=== PATIENT | male | born 1980 ===

== ENCOUNTER 2022-07-27 01:06 | Emergency (ER) | payer SELFPAY ==
[2022-07-27] MEDS ORDERED: NA CHLORIDE 0.9% 1,000 ML ONE (01:24)
[2022-07-27] MEDS ORDERED: LORazepam 2 MG/ML VIAL ONE (01:24)
[2022-07-27 01:51] LABS: Absolute Lymphocytes (CBC) 2.1 K/uL (0.7-4.9); Hematocrit 45.2 % (39.6-49.0); Lymphocytes % 32.1 % (15.3-44.8); MCV 100.2 fL (80-100); MPV 9.5 fL (7.6-11.3); RBC Red Blood Cell Count 4.51 M/uL (4.33-5.43)
[2022-07-27 01:53] LABS: Protime INR 0.95
[2022-07-27 02:31] LABS: ALT/SGPT 207 U/L (12-78); AST/SGOT 139 U/L (15-37); Albumin 3.3 g/dL (3.4-5.0); Alkaline Phosphatase 104 U/L (45-117); BUN Blood Urea Nitrogen 9 mg/dL (7-18); Bicarbonate 25 mmol/L (21-32); Bilirubin Direct 0.6 mg/dL (0-0.2); Bilirubin Total 1.3 mg/dL (0.2-1.0); Glomerular Filtration Rate 102 ml/min (=/>90); Glucose Level 87 mg/dL (74-106); Potassium 3.3 mmol/L (3.5-5.1); Protein, Total 7.2 g/dL (6.4-8.2); Sodium Level 134 mmol/L (136-145)
[2022-07-27 03:25] LABS: Barbiturates NEGATIVE (NEGATIVE); Benzodiazepines NEGATIVE (NEGATIVE); Cocaine POSITIVE (NEGATIVE); METHAMPHETAM POSITIVE (NEGATIVE); Methadone NEGATIVE (NEGATIVE); Opiates NEGATIVE (NEGATIVE); Phencyclidine NEGATIVE (NEGATIVE); THC Cannibis NEGATIVE (NEGATIVE)
[2022-07-27 03:27] LABS: Urine Blood Trace-intact (Negative); Urine Glucose Negative (Negative); Urine Protein Negative (Negative); Urine Specific Gravity 1.025 (1.005-1.030); Urine pH 5.5 (5.0-7.0)
--- NOTE | 2022-07-27 03:38 | ER ---
Nurse's Notes [facility] Name: Brock Man Age: 41 yrs Sex: Male : 1980 Arrival Date: 07/27/2022 Time: 01:19 Bed 8 Private MD: Diagnosis: Adverse effect of amphetamines;Cocaine abuse;Alcohol abuse;transaminitis Presentation: 07/27 01:20 Chief complaint: Patient states: Patient C/O auditory and visual hallucinations,onset pf1 Wednesday. Patient denies any hallucinations at this time. Patient stated did meth, cocaine and took an unknown type of yellow pill on Wednesday. Patient stated drinks liquor every day. Patient stated fell off his boat and hit his posterior left head on Wednesday. 01:20 Method Of Arrival: EMS: [facility] pf1 01:20 Coronavirus screen: Vaccine status: Patient reports being unvaccinated. Ebola Screen: pf1 Patient negative for fever greater than or equal to 101.5 degrees Fahrenheit, and additional compatible Ebola Virus Disease symptoms. Initial Sepsis Screen: Does the patient meet any 2 criteria? No. Patient's initial sepsis screen is negative. Does the patient have a suspected source of infection? No. Patient's initial sepsis screen is negative. Risk Assessment: Do you want to hurt yourself or someone else? Patient reports no desire to harm self or others. Onset of symptoms was July 24, 2022. 01:20 Acuity: [place] 3 pf1 Triage Assessment: 01:20 General: Appears in no apparent distress. comfortable, well groomed. General: Behavior pf1 is calm, cooperative, appropriate for age. 01:20 Pain: Complains of pain in back of head. EENT: No deficits noted. Neuro: No deficits pf1 noted. Neuro: Reports Patient reports seeing little bugs everywhere and having visual or auditory hallucinations since Wednesday. Patient stated had a 2 hour conversation with his mother tonannamaria. . Cardiovascular: No deficits noted. Respiratory: No deficits noted. GI: No deficits noted. : No deficits noted. Derm: No deficits noted. Musculoskeletal: No deficits noted. Injury Description: Head injury sustained to scalp. Historical: - Allergies: 01:20 No Known Allergies; pf1 - Home Meds: 01:20 None [Active]; pf1 - PMHx: 01:20 None; pf1 - PSHx: 01:20 None; pf1 - Immunization history:: Adult Immunizations not up to date. - Social history:: Smoking status: Patient uses alcohol, on a daily basis. street drugs, cocaine, Methamphetamine (Meth) unknown yellow pill, Smoking status: Patient reports the use of cigarette tobacco products, smokes two packs cigarettes per day. - Family history:: not pertinent. - Code Status:: Full code. Screenin:20 Abuse screen: Denies threats or abuse. pf1 01:20 Nutritional screening: No deficits noted. Tuberculosis screening: No symptoms or risk pf1 factors identified. Fall Risk None identified. Assessment: 01:20 General: Appears in no apparent distress. comfortable, well groomed, Behavior is calm, pf1 cooperative, appropriate for age, quiet. 01:20 Pain: Complains of pain in back of head. pf1 Vital Signs: 01:20 BP 142 / 96; Pulse 88; Resp 18; Temp 98.8; Pulse Ox 100% ; Weight 89.81 kg; Height 6 pf1 ft. 1 in. (185.42 cm); 02:00 BP 137 / 99; Pulse 91; Resp 18; Pulse Ox 99% ; pf1 03:00 BP 132 / 102; Pulse 94; Resp 15; Pulse Ox 100% ; pf1 03:50 BP 137 / 94; Pulse 88; Resp 18; Temp 98.5; Pulse Ox 100% ; pf1 01:20 Body Mass Index 26.12 (89.81 kg, 185.42 cm) pf1 ED Course: 01:19 Patient arrived in ED. ms3 01:19 Jesus Salguero DO is Attending Physician. ms3 01:20 Arm band placed on left wrist. pf1 01:20 Patient has correct armband on for positive identification. pf1 01:30 Warm blanket given. pf1 01:30 Inserted saline lock: 20 gauge in right antecubital area, using aseptic technique. pf1 01:30 No provider procedures requiring assistance completed. pf1 01:44 Ana Cristina kelly, GERARDO is Primary Nurse. pf1 02:06 Triage completed. pf1 02:31 CT Head Brain wo Cont In Process Unspecified. EDMS 03:35 Chris Miller DO is Referral Physician. ms3 03:50 IV discontinued, intact, bleeding controlled, No redness/swelling at site. Pressure pf1 dressing applied. Administered Medications: 01:36 Drug: Ativan (LORazepam) 2 mg Route: IVP; Site: right antecubital; kl 02:20 Follow up: Response: No adverse reaction pf1 01:40 Drug: NS 0.9% 1000 ml Route: IV; Rate: 1 bolus; Site: right antecubital; kl 02:40 Follow up: IV Status: Completed infusion; IV Intake: 1000ml pf1 Medication: 01:20 VIS not applicable for this client. pf1 Intake: 02:40 IV: 1000ml; Total: 1000ml. pf1 Outcome: 03:37 Discharge ordered by MD. ms3 03:50 Discharged to home ambulatory, with family. pf1 03:50 Condition: improved pf1 03:50 Discharge instructions given to patient, Instructed on discharge instructions, benefits of quitting smoking, Demonstrated understanding of instructions, follow-up care. 04:56 Patient left the ED. pf1 Signatures: Dispatcher [employer] EDMS Mary Ellen Win RN RN kl Sims, Marcus, DO DO ms3 Ana Cristina kelly RN RN pf1 Corrections: (The following items were deleted from the chart) 02:15 01:20 Chief complaint: Patient states: Patient C/O auditory and visual pf1 hallucinations,onset Wednesday. Patient denies any hallucinations at this time. Patient stated did meth and took an unknown type of pill on Wednesday. Patient stated drinks liquor every day pf1 04:52 04:20 IV discontinued, intact, bleeding controlled, No redness/swelling at site. pf1 Pressure dressing applied, pf1
--- NOTE | 2022-07-27 03:38 | EDPHYS ---
Physician Documentation [facility] Name: Brock Man Age: 41 yrs Sex: Male : 1980 Arrival Date: 07/27/2022 Time: 01:19 Bed 8 Private MD: ED Physician Jesus Salguero HPI: 07/27 03:39 This 41 yrs old Male presents to ER via EMS with complaints of hallucinations after ms3 taking Meth. 03:39 The patient presents to the emergency department with psychosis, has experienced visual ms3 hallucinations. Onset: The symptoms/episode began/occurred 2 day(s) ago. Associated signs and symptoms: The patient has no apparent associated signs or symptoms. Severity of symptoms: At their worst the symptoms were mild in the emergency department the symptoms are unchanged. Historical: - Allergies: 01:20 No Known Allergies; pf1 - Home Meds: 01:20 None [Active]; pf1 - PMHx: 01:20 None; pf1 - PSHx: 01:20 None; pf1 - Immunization history:: Adult Immunizations not up to date. - Social history:: Smoking status: Patient uses alcohol, on a daily basis. street drugs, cocaine, Methamphetamine (Meth) unknown yellow pill, Smoking status: Patient reports the use of cigarette tobacco products, smokes two packs cigarettes per day. - Family history:: not pertinent. - Code Status:: Full code. ROS: 03:39 Constitutional: Negative for fever, and chills. ENT: Negative for injury, pain, and ms3 discharge, Neck: Negative for injury, pain, and swelling, Cardiovascular: Negative for chest pain, and palpitations. Respiratory: Negative for shortness of breath, cough, wheezing, and pleuritic chest pain, Abdomen/GI: Negative for abdominal pain, nausea, vomiting, diarrhea, and constipation, MS/Extremity: Negative for injury and deformity, Skin: Negative for injury, rash, and discoloration, Neuro: Negative for headache, weakness, numbness, tingling. 03:39 Psych: Positive for visual hallucinations. 03:39 All other systems are negative. Exam: 03:02 ECG was reviewed by the Attending Physician. ms3 03:39 Constitutional: This is a well developed, well nourished patient who is awake, alert, ms3 and in no acute distress. Head/Face: Normocephalic, atraumatic. ENT: Nares patent. No nasal discharge, no septal abnormalities noted. Tympanic membranes are normal and external auditory canals are clear. Oropharynx with no redness, swelling, or masses, exudates, or evidence of obstruction, uvula midline. Mucous membranes moist. Neck: Trachea midline, no cervical lymphadenopathy. Supple, full range of motion without nuchal rigidity, or vertebral point tenderness. No Meningismus. Chest/axilla: Normal chest wall appearance and motion. Nontender with no deformity. Cardiovascular: Regular rate and rhythm with a normal S1 and S2. No gallops, murmurs, or rubs. Normal PMI, no JVD. No pulse deficits. Respiratory: Lungs have equal breath sounds bilaterally, clear to auscultation and percussion. No rales, rhonchi or wheezes noted. No increased work of breathing, no retractions or nasal flaring. Abdomen/GI: Soft, non-tender, with normal bowel sounds. No distension or tympany. No guarding or rebound. No evidence of tenderness throughout. Back: No spinal tenderness. No costovertebral tenderness. Full range of motion. Skin: Warm, dry with normal turgor. Normal color with no rashes, no lesions, and no evidence of cellulitis. MS/ Extremity: Pulses equal, no cyanosis. Neurovascular intact. Full, normal range of motion. Neuro: Awake and alert, GCS 15, oriented to person, place, time, and situation. Cranial nerves II-XII grossly intact. Motor strength 5/5 in all extremities. Sensory grossly intact. Cerebellar exam normal. Normal gait. Psych: Awake, alert, with orientation to person, place and time. Behavior, mood, and affect are within normal limits. Vital Signs: 01:20 BP 142 / 96; Pulse 88; Resp 18; Temp 98.8; Pulse Ox 100% ; Weight 89.81 kg; Height 6 pf1 ft. 1 in. (185.42 cm); 02:00 BP 137 / 99; Pulse 91; Resp 18; Pulse Ox 99% ; pf1 03:00 BP 132 / 102; Pulse 94; Resp 15; Pulse Ox 100% ; pf1 03:50 BP 137 / 94; Pulse 88; Resp 18; Temp 98.5; Pulse Ox 100% ; pf1 01:20 Body Mass Index 26.12 (89.81 kg, 185.42 cm) pf1 MDM: 01:19 Patient medically screened. ms3 03:39 Differential diagnosis: drug withdrawal. acute psychotic break, psychosis secondary to ms3 non-compliance. Data reviewed: vital signs, nurses notes, lab test result(s), and as a result, I will discharge patient. Counseling: I had a detailed discussion with the patient and/or guardian regarding: the historical points, exam findings, and any diagnostic results supporting the discharge/admit diagnosis, lab results, radiology results, the need for outpatient follow up, to return to the emergency department if symptoms worsen or persist or if there are any questions or concerns that arise at home. ED course: Discussed labs and imaging with patient. Patient states he is improved at this time, alert and oriented x4, in no apparent distress, nontoxic-appearing. Patient to follow-up with Dr. Miller in 2 to 3 days. Patient understands and agrees with plan. All questions were answered. Return precautions discussed include worsening symptoms, or any other concerns. 07/27 01:20 Order name: Acetaminophen; Complete Time: 03:13 ms3 07/27 01:20 Order name: BMP; Complete Time: 03:13 ms3 07/27 01:20 Order name: CBC with Diff; Complete Time: 03:13 ms3 07/27 01:20 Order name: Ethanol; Complete Time: 03:13 ms3 07/27 01:20 Order name: Hepatic Function; Complete Time: 03:13 ms07/27 01:20 Order name: Protime (+inr); Complete Time: 03:13 ms07/27 01:20 Order name: Ptt, Activated; Complete Time: 03:13 ms3 07/27 01:20 Order name: Salicylate; Complete Time: 03:13 ms3 07/27 01:20 Order name: Urine Drug Screen; Complete Time: 03:26 ms3 07/27 01:20 Order name: EKG; Complete Time: 01:21 ms3 07/27 01:46 Order name: CT Head Brain wo Cont ms3 07/27 03:27 Order name: Urine Dipstick-Ancillary EDMS 07/27 01:20 Order name: EKG - Nurse/Tech; Complete Time: 03:17 ms3 07/27 01:20 Order name: IV Saline Lock; Complete Time: 03:17 ms3 07/27 01:20 Order name: Labs collected and sent; Complete Time: 03:17 ms3 07/27 01:20 Order name: O2 Per Protocol; Complete Time: 03:17 ms3 07/27 01:20 Order name: O2 Sat Monitoring; Complete Time: 03:17 ms3 07/27 01:20 Order name: Suicide Screening ([place]); Complete Time: 03:17 ms3 07/27 01:20 Order name: Urine Dipstick-Ancillary (obtain specimen) ms3 EC:02 Rate is 84 beats/min. Rhythm is regular. QRS [place] is Normal. SD interval is normal. ms3 Clinical impression: Normal ECG. Interpreted by me. Reviewed by me. Administered Medications: 01:36 Drug: Ativan (LORazepam) 2 mg Route: IVP; Site: right antecubital; kl 02:20 Follow up: Response: No adverse reaction pf1 01:40 Drug: NS 0.9% 1000 ml Route: IV; Rate: 1 bolus; Site: right antecubital; kl 02:40 Follow up: IV Status: Completed infusion; IV Intake: 1000ml pf1 Disposition Summary: 07/27/22 03:37 Discharge Ordered Location: Home ms3 Condition: Stable ms3 Diagnosis - Adverse effect of amphetamines ms3 - Cocaine abuse ms3 - Alcohol abuse ms3 - transaminitis ms3 Followup: ms3 - With: Chris Miller DO - When: 2 - 3 days - Reason: Recheck today's complaints Discharge Instructions: - Discharge Summary Sheet ms3 - Alcohol Abuse and Dependence Information, Adult ms3 - Illegal Drug Use Information, Adult ms3 Forms: - Medication Reconciliation Form ms3 - Thank You Letter ms3 - Antibiotic Education ms3 - Prescription Opioid Use ms3 Signatures: Dispatcher [employer] EDMary Ellen Zapata RN Jesus Huerta DO DO ms3 Ana Cristina kelly RN RN pf1
[2022-07-27 05:18] VITALS: O2SAT 100
[2022-07-27 05:24] VITALS: BP 137/94; TEMP 98.5
--- NOTE | 2022-07-27 14:26 | RAD REPORT ---
EXAM DESCRIPTION: CT - Head Brain Wo Cont - 07/27/2022 7:29 am CLINICAL HISTORY: The patient is 41 years old and is Male; Trauma TECHNIQUE: Axial computed tomography images of the head/brain without intravenous contrast. Sagitt al and coronal reformatted images were created and reviewed. This CT exam was performed using one o r more of the following dose reduction techniques: automated exposure control, adjustment of the mA and/or kV according to patient size, and/or use of iterative reconstruction technique. COMPARISON: No relevant prior studies available. FINDINGS: BRAIN: Unremarkable. The prakash-white matter differentiation is preserved . No hemorrhag e. No significant white matter disease. No edema. No extra-axial fluid collections. VENTRICLES: Unremarkable. No ventriculomegaly. BONES/JOINTS: No acute fracture. SOFT TISSUES: Unremarkable. SINUSES: Unremarkable as visualized. No acute sinusitis. MASTOID AIR CELLS: Unremarkable as visualized. No mastoid effusion. ORBITS: Unremarkable as visualized. IMPRESSION: No acute intracranial findings. Electronically signed by: Lesvia Crystal MD 07/27/2022 2:39 AM [employer] Due to temporary technical issues with the PACS/Fluency reporting system, reports are being signed by the in house radiologists without review as a courtesy to insure prompt reporting. The interpreting radiologist is fully responsible for the content of the report.
== END 2022-07-27 04:56 | disposition home or self-care (01) ==
LOC: ER 01:06
DX: T43.625A Adverse effect of amphetamines, initial encounter (principal); F14.10 Cocaine abuse, uncomplicated; F10.10 Alcohol abuse, uncomplicated; F17.210 Nicotine dependence, cigarettes, uncomplicated
CPT/HCPCS: 36415; 70450; 80048; 80076; 80307; 80320; 80329; 81003; 85025; 85610; 85730; 96361; 96374; 99284; J7030